=== PATIENT | female | born 1975 | race Two or more races ===

== ENCOUNTER 2023-01-21 17:39 | Emergency (ER) | payer OTHER ==
[~2023-01-21] VITALS: Ht 157.5 cm; Wt 61.7 kg
[2023-01-21] MEDS ORDERED: TENORMIN50 M1 PO (18:17)
[2023-01-21] MEDS ORDERED: IPRAT-ALBUT 0.5-3 ML IH (21:17)
[2023-01-21] MEDS ORDERED: TUSNEL LIQUID178 ML PO (21:17)
[2023-01-21] MEDS ORDERED: ZITHROMAX500 MG PO (21:17)
== END 2023-01-21 21:21 | disposition home or self-care (01) ==
LOC: ER 17:39
DX: J06.9 Acute upper respiratory infection, unspecified (principal); I10 Essential (primary) hypertension

== ENCOUNTER 2023-06-29 17:50 | Emergency (ER) | payer OTHER ==
[~2023-06-29] VITALS: Ht 157.5 cm; Wt 60.3 kg
[~2023-06-29 17:50] MED LIST: IPRAT-ALBUT 0.5-3 ML IH; TENORMIN50 M1 PO; TUSNEL LIQUID178 ML PO; ZITHROMAX500 MG PO
== END 2023-06-29 20:19 | disposition home or self-care (01) ==
LOC: ER 17:50
DX: M16.12 Unilateral primary osteoarthritis, left hip (principal); I10 Essential (primary) hypertension; Z86.79 Personal history of other diseases of the circulatory system; M51.36 Other intervertebral disc degeneration, lumbar region

== ENCOUNTER 2024-02-23 16:48 | Emergency (ER) | payer OTHER ==
[~2024-02-23] VITALS: Ht 157.5 cm; Wt 65.8 kg
[2024-02-23 18:41] LABS: HEMATOCRIT 32.7 % (36.0-45.00); HEMOGLOBIN 10.2 g/dL (12.0-15.00); MEAN CORPUSCULAR HEMOGLOBIN 21.1 pg (27.00-32.0); MEAN CORPUSCULAR HGB CONC 31.2 g/dl (32.0-36.0); PLATELET COUNT 298 K/uL (150-450); RED BLOOD COUNT 4.83 M/uL (4.00-6.00); RED CELL DISTRIBUTION WIDTH 19.7 % (11.5-14.5)
[2024-02-23 18:42] LABS: MEAN CELL VOLUME 67.7 fL (80.00-100.00)
== END 2024-02-23 20:55 | disposition home or self-care (01) ==
LOC: ER 16:49
DX: R53.81 Other malaise (principal); J06.9 Acute upper respiratory infection, unspecified; Z20.822 Contact with and (suspected) exposure to COVID-19

== ENCOUNTER 2024-05-11 13:37 | Emergency (ER) | payer OTHER ==
[~2024-05-11] VITALS: Ht 157.5 cm; Wt 65.8 kg
[2024-05-11] MEDS ORDERED: KETOROLAC TROMETHAMINE 15 MG VIAL IM STA (16:51)
[2024-05-11] MEDS ORDERED: ORPHENADRINE CITRATE 30 MG/ML AMPUL IM STA (16:52)
[2024-05-11] MEDS ORDERED: DICLOFENAC POTA50 MG PO (16:54)
[2024-05-11] MEDS ORDERED: KETOROLAC TROMETHAMINE 30 MG VIAL ONE (17:11)
[2024-05-11] MEDS ORDERED: ORPHENADRINE CITRATE 30 MG/ML AMPUL ONE (17:11)
== END 2024-05-11 17:32 | disposition home or self-care (01) ==
LOC: ER 13:38
DX: M54.9 Dorsalgia, unspecified (principal); I10 Essential (primary) hypertension

== ENCOUNTER 2025-05-30 13:25 | Emergency (ER) | payer OTHER ==
[~2025-05-30] VITALS: Ht 157.5 cm; Wt 69.4 kg
[~2025-05-30 13:25] MED LIST changes: +DICLOFENAC POTA50 MG PO
[2025-05-30 15:05] VITALS: BP 150/80; O2SAT 99
[2025-05-30] MEDS ORDERED: IRBESARTAN150 MG PO (15:08)
[2025-05-30] MEDS ORDERED: ROSUVASTATIN CA10 MG PO (15:08)
[2025-05-30] MEDS ORDERED: ORPHENADRINE CITRATE 30 MG/ML AMPUL IM ONE (15:45)
[2025-05-30 16:41] LABS: BASO % 0.5 % (0.1-1.2); EOS # 0.30 (0.04-0.54); EOS % 3.1 % (0.7-7.0); LYMPH # 1.95 (1.18-3.74); LYMPH % 20.0 % (19.3-53.1); MEAN PLATELET VOLUME 10.50 fl (9.4-12.4); MONO # 1.20 (0.24-0.82); NEUT # 6.17 (1.56-6.13); NEUT % 63.5 % (34.0-71.1); RED CELL DISTRIBUTION WIDTH 13.3 % (11.6-14.4)
[2025-05-30 16:47] LABS: MONO % 12.3 % (4.7-12.5)
[2025-05-30 17:05] LABS: COVID-19 AG NEGATIVE (NEGATIVE)
[2025-05-30] MEDS ORDERED: OSEL75CA PO (17:31)
[2025-05-30] MEDS ORDERED: TUSSIN DM LIQU118 ML PO (17:31)
[2025-05-30] MEDS ORDERED: OSELTAMIVIR PHOSPHATE 75 MG CAPSULE PO ONE (17:45)
== END 2025-05-30 18:02 | disposition home or self-care (01) ==
LOC: ER 13:49
PROVIDERS: General Practice
DX: J10.1 Influenza due to other identified influenza virus with other respiratory manifestations (principal); R53.81 Other malaise; Z20.822 Contact with and (suspected) exposure to COVID-19; I10 Essential (primary) hypertension